=== PATIENT | female | born 1985 | race Caucasian/White ===

== ENCOUNTER 2018-04-28 18:22 | Outpatient (CLI) | payer OTHER ==
[~2018-04-28 18:22] MED LIST: MIRALAX510 GM
[2018-04-28] MEDS ORDERED: PRENATABS RX T1 EACH PO (19:48)
== END 2018-04-29 12:09 | disposition home or self-care (01) ==
LOC: OBS/DEL 18:22
DX: O26.893 Other specified pregnancy related conditions, third trimester (principal); R10.2 Pelvic and perineal pain; O60.03 Preterm labor without delivery, third trimester; Z34.83 Encounter for supervision of other normal pregnancy, third trimester

== ENCOUNTER 2018-08-31 03:05 | Inpatient (IN) | payer OTHER ==
[~2018-08-31] VITALS: Ht 160 cm; Wt 3.2 kg
[~2018-08-31 03:05] MED LIST changes: +PRENATABS RX T1 EACH PO
== END 2018-09-02 11:20 | DRG 766 ==
LOC: LDR 03:05 → OB/GYN 03:05 → O/R 11:08 → OB/GYN 14:31
PROVIDERS: Obstetrics & Gynecology
PROC: 0UB70ZZ Excision of Bilateral Fallopian Tubes, Open Approach (ICD-10-PCS; 2018-08-31)
PROC: 4A1HXCZ Monitoring of Products of Conception, Cardiac Rate, External Approach (ICD-10-PCS; 2018-08-31)
PROC: 4A033R1 Measurement of Arterial Saturation, Peripheral, Percutaneous Approach (ICD-10-PCS; 2018-08-31)
PROC: 10D00Z1 Extraction of Products of Conception, Low, Open Approach (ICD-10-PCS; principal; 2018-08-31 09:00)
DX: O34.211 Maternal care for low transverse scar from previous cesarean delivery (principal); O75.82 Onset (spontaneous) of labor after 37 completed weeks of gestation but before 39 completed weeks gestation, with delivery by (planned) cesarean section; Z3A.39 39 weeks gestation of pregnancy; Z37.0 Single live birth; Z30.2 Encounter for sterilization; Z22.330 Carrier of Group B streptococcus